=== PATIENT | male | born 1940 | race Caucasian/White ===

== ENCOUNTER 2018-09-25 09:03 | Inpatient (IN) ==
[2018-09-25] MEDS ORDERED: NITROGLYCERIN SL 0.4 MG TABLET SL ONE ×2 (09:44→09:58)
[2018-09-25 09:56] LABS: Basophils # 0.1 10*3/uL (0.0-0.2); Basophils % 0.6 % (0.0-0.8); Eosinophils # 0.1 10*3/uL (0.0-0.87); Eosinophils % 0.4 % (0.00-10.9); Hematocrit 47.8 VOL% (42.0-52.0); Hemoglobin 15.4 GM/DL (14.0-18.0); Immature Granulocytes % 2.1 %; Immature Granulocytes Absolute 0.29 #; Lymphocytes # 0.8 10*3/uL (1.4-4.0); Lymphocytes % 5.4 % (21.2-54.2); Mean Corpuscular HGB Conc 32.2 GM/DL (32-36); Mean Corpuscular Volume 95.6 FL (87-102); Mean Platelet Volume 9.4 FL (9.6-12.0); Monocytes % 7.4 % (1.7-12.7); Neutrophils % 84.1 % (38.7-73.9); Platelet Count 591 T/CUMM (130-400); Red Cell Distribution Width 14.2 % (9.3-17.3)
[2018-09-25 10:03] LABS: PT Patient Result 11.3 SECS
[2018-09-25] MEDS ORDERED: ONDANSETRON 4 MG/2 ML VIAL ONE (10:10)
[2018-09-25] MEDS ORDERED: MORPHINE 4 MG/1 ML VIAL ONE (10:10)
[2018-09-25 10:13] LABS: Bilirubin,Total 0.8 MG/DL (0.2-1.0); Calcium 9.4 MG/DL (8.5-10.1); Osmolality,Calculated 282.4 MOS/KG (273-304); Total Protein 7.7 G/DL (6.4-8.3)
[2018-09-25] MEDS ORDERED: NITROGLYCERIN SL 0.4 MG TABLET SL STA ×2 (10:34→10:35)
[2018-09-25] MEDS ORDERED: MORPHINE 4 MG/1 ML VIAL IV STA (10:35)
[2018-09-25] MEDS ORDERED: ONDANSETRON 4 MG/2 ML VIAL IV STA (10:36)
[2018-09-25] MEDS ORDERED: LEVOFLOXACIN INJ 500 MG in PREMIX 1 EACH IV STA (11:03)
[2018-09-25] MEDS ORDERED: FUROSEMIDE 100 MG/10 ML VIAL IV STA (11:06)
[2018-09-25 11:34] LABS: ABG Base Excess 1.5 MMOL/L (-2.5-2.5); ABG Oxygen Saturation 95.7 % (95-100); ABG PCO2 36.1 MM HG (35-48); ABG PH 7.459 (7.35-7.45); ABG PO2 82.6 MM HG (80-95); ABG TCO2 26.1 MMOL/L (23-27)
[2018-09-25] MEDS ORDERED: ONDANSETRON 4 MG/2 ML VIAL IV PRN (11:44)
[2018-09-25] MEDS ORDERED: ALBUTEROL 2.5 MG/3 ML NEB RESP TX PRN (11:44)
[2018-09-25] MEDS ORDERED: ACETAMINOPHEN 325 MG TABLET PO PRN (11:44)
[2018-09-25] MEDS: ALBUTEROL/IPRATROPIUM 3 ML NEB RESP TX SCH ×2 (13:11→20:07)
[2018-09-25] MEDS: ENOXAPARIN 40 MG/0.4 ML SYRINGE SUBCUT SCH (15:14)
[2018-09-25] MEDS: CILOSTAZOL 100 MG TABLET PO SCH (20:47)
[2018-09-25] MEDS: hydrALAZINE 25 MG TABLET PO SCH (20:47)
[2018-09-25 22:32] LABS: Apearance,Urine Slightly Hazy (Clear); Bacteria,Urine Occasional /HPF (Few); Bilirubin,Urine Negative (Negative); Blood, Urine Large mg/dL (Negative); Glucose,Urine (UA) Negative (Negative); Ketones,Urine 20 mg/dL (Negative); Mucus,Urine Occasional /LPF (Occasional); Nitrite,Urine Negative (Negative); Protein,Urine 100 MG/DL; RBC,Urine 423 /HPF (0-4); Squamous Epithelial Cell,Urine Occasional /HPF (0-10); Urine Color Yellow (Yellow); Urine Specific Gravity 1.017 (1.001-1.035); WBC,Urine 5 /HPF (0-6)
[2018-09-26] MEDS ORDERED: MELATONIN 3 MG TABLET PO PRN (00:06)
[2018-09-26] MEDS: ALBUTEROL/IPRATROPIUM 3 ML NEB RESP TX SCH ×4 (00:36→19:45)
[2018-09-26 05:08] LABS: Basophils % 0.2 % (0.0-0.8); Eosinophils % 0.2 % (0.00-10.9); Hematocrit 43.3 VOL% (42.0-52.0); Hemoglobin 14.1 GM/DL (14.0-18.0); Immature Granulocytes % 1.6 %; Immature Granulocytes Absolute 0.28 #; Lymphocytes # 0.7 10*3/uL (1.4-4.0); Lymphocytes % 3.8 % (21.2-54.2); Mean Corpuscular HGB Conc 32.6 GM/DL (32-36); Mean Corpuscular Volume 96.7 FL (87-102); Mean Platelet Volume 9.7 FL (9.6-12.0); Neutrophils % 86.2 % (38.7-73.9); Platelet Count 549 T/CUMM (130-400); Red Blood Count 4.48 MC/CUMM (3.8-5.5); Red Cell Distribution Width 14.3 % (9.3-17.3); White Blood Count 17.2 T/CUMM (4-12)
[2018-09-26 05:27] LABS: Allen Test Positive; Pt O2 Delivery Device Other
[2018-09-26 05:29] LABS: ABG Base Excess -0.7 MMOL/L (-2.5-2.5); ABG HCO3 23.7 MMOL/L (20-26); ABG Oxygen Saturation 92.1 % (95-100); ABG PH 7.363 (7.35-7.45); ABG PO2 70.8 MM HG (80-95); ABG TCO2 21.4 MMOL/L (23-27)
[2018-09-26 05:37] LABS: Anisocytosis 1+; Band Neutrophils 1 % (0-10); Lymphocytes 7 % (20-55); Nucleated Red Blood Cells 2 (0-5); Platelet Estimate Increased; Segmented Neutrophils 91 % (50-85); Total Cells Counted 100
[2018-09-26 05:43] LABS: Albumin 2.4 G/DL (3.4-5.0); Bilirubin,Total 1.4 MG/DL (0.2-1.0); Calcium 9.2 MG/DL (8.5-10.1); Osmolality,Calculated 284.3 MOS/KG (273-304); Total Protein 7.2 G/DL (6.4-8.3)
[2018-09-26] MEDS ORDERED: SUCCINYLCHOLINE 200 MG/10 ML VIAL ONE (06:07)
[2018-09-26] MEDS ORDERED: ETOMIDATE 20 MG/10 ML VIAL IV ONE ×2 (06:07→06:14)
[2018-09-26] MEDS ORDERED: VECURONIUM 10 MG VIAL IV ONE ×2 (06:14→06:46)
[2018-09-26] MEDS ORDERED: PROPOFOL 1,000 MG/100 ML BOTTLE IV ONE (06:25)
[2018-09-26] MEDS ORDERED: FUROSEMIDE 40 MG/4 ML VIAL ONE (06:28)
[2018-09-26] MEDS: PROPOFOL 1,000 MG/100 ML BOTTLE IV SCH ×5 (06:28→21:52)
[2018-09-26] MEDS ORDERED: FUROSEMIDE 40 MG/4 ML VIAL IV ONE ×2 (06:29→06:58)
[2018-09-26] MEDS ORDERED: MIDAZOLAM 2 MG/2 ML VIAL ONE (06:36)
[2018-09-26] MEDS ORDERED: MIDAZOLAM 2 MG/2 ML VIAL IV ONE (06:38)
[2018-09-26] MEDS ORDERED: VECURONIUM 10 MG VIAL IV PRN (06:52)
[2018-09-26 07:09] LABS: ABG Base Excess -4.2 MMOL/L (-2.5-2.5); ABG HCO3 20.9 MMOL/L (20-26); ABG PO2 85.1 MM HG (80-95); ABG TCO2 24.2 MMOL/L (23-27); Allen Test Positive; Pt O2 Delivery Device Ventilator
[2018-09-26 07:24] LABS: ABG PCO2 73.3 MM HG (35-48); ABG PH 7.179 (7.35-7.45)
[2018-09-26] MEDS: PIPERACILLIN/TAZOBACTAM 3,375 MG in SODIUM CHLORIDE 0.9% 100 ML IV SCH ×3 (08:00→23:17)
[2018-09-26] MEDS ORDERED: ASCORBIC ACID 500 MG TABLET PO SCH (09:00)
[2018-09-26] MEDS ORDERED: PANTOPRAZOLE 40 MG TABLET PO SCH (09:00)
[2018-09-26] MEDS: POTASSIUM GLUCONATE 500 MG TABLET PO SCH (09:18)
[2018-09-26] MEDS: ALLOPURINOL 300 MG TABLET PO SCH (09:18)
[2018-09-26] MEDS: DULoxetine 30 MG CAPSULE PO SCH (09:18)
[2018-09-26] MEDS: CILOSTAZOL 100 MG TABLET PO SCH ×2 (09:18→21:39)
[2018-09-26] MEDS: ASPIRIN CHEW 81 MG TABLET PO SCH (09:18)
[2018-09-26] MEDS: LEVOFLOXACIN INJ 750 MG in PREMIX 1 EACH IV SCH (09:19)
[2018-09-26] MEDS: LEVOTHYROXINE 75 MCG TABLET PO SCH (09:19)
[2018-09-26] MEDS: hydrALAZINE 25 MG TABLET PO SCH ×2 (09:19→21:18)
[2018-09-26] MEDS: LANSOPRAZOLE ODT 30 MG TABLET PER TUBE SCH (09:28)
[2018-09-26] MEDS: ASCORBIC ACID 500 MG TABLET PO SCH ×2 (12:00→21:39)
[2018-09-26] MEDS: ENOXAPARIN 40 MG/0.4 ML SYRINGE SUBCUT SCH (12:07)
[2018-09-26] MEDS: LACTATED RINGERS 1,000 ML IV SCH ×2 (13:30→23:12)
[2018-09-26] MEDS ORDERED: GLUCAGON 1 MG VIAL IM PRN (13:55)
[2018-09-26] MEDS ORDERED: DEXTROSE 50% 25 GM/50 ML VIAL IV PRN (13:55)
[2018-09-26] MEDS: INSULIN LISPRO 100 UNIT/ML SUBCUT SCH ×2 (16:19→21:39)
[2018-09-26 16:53] LABS: Calcium 8.8 MG/DL (8.5-10.1); Osmolality,Calculated 282.5 MOS/KG (273-304)
[2018-09-27] MEDS: ALBUTEROL/IPRATROPIUM 3 ML NEB RESP TX SCH ×4 (01:50→19:05)
[2018-09-27] MEDS: PROPOFOL 1,000 MG/100 ML BOTTLE IV SCH ×5 (03:35→20:28)
[2018-09-27 04:23] LABS: ABG Base Excess 1.8 MMOL/L (-2.5-2.5); ABG HCO3 28.3 MMOL/L (20-26); ABG Oxygen Saturation 98.7 % (95-100); ABG PCO2 52.4 MM HG (35-48); ABG PO2 157.1 MM HG (80-95); ABG TCO2 29.9 MMOL/L (23-27); Allen Test Positive; Pt O2 Delivery Device Ventilator
[2018-09-27] MEDS: PIPERACILLIN/TAZOBACTAM 3,375 MG in SODIUM CHLORIDE 0.9% 100 ML IV SCH ×3 (06:01→23:38)
[2018-09-27 07:09] LABS: Basophils % 0.3 % (0.0-0.8); Eosinophils # 0.1 10*3/uL (0.0-0.87); Eosinophils % 0.4 % (0.00-10.9); Hematocrit 41.1 VOL% (42.0-52.0); Hemoglobin 12.7 GM/DL (14.0-18.0); Immature Granulocytes % 1.5 %; Immature Granulocytes Absolute 0.24 #; Lymphocytes # 0.4 10*3/uL (1.4-4.0); Lymphocytes % 2.6 % (21.2-54.2); Mean Corpuscular HGB Conc 30.9 GM/DL (32-36); Mean Corpuscular Volume 99.8 FL (87-102); Mean Platelet Volume 9.5 FL (9.6-12.0); Monocytes % 7.8 % (1.7-12.7); Neutrophils % 87.4 % (38.7-73.9); Platelet Count 417 T/CUMM (130-400); Red Blood Count 4.12 MC/CUMM (3.8-5.5); Red Cell Distribution Width 14.5 % (9.3-17.3); White Blood Count 15.7 T/CUMM (4-12)
[2018-09-27 07:22] LABS: Lymphocytes 2 % (20-55); Segmented Neutrophils 92 % (50-85); Total Cells Counted 100
[2018-09-27 07:23] LABS: Hypochromasia Slight; Platelet Estimate Adequate
[2018-09-27] MEDS: INSULIN LISPRO 100 UNIT/ML SUBCUT SCH ×4 (07:54→21:48)
[2018-09-27] MEDS: LEVOFLOXACIN INJ 750 MG in PREMIX 1 EACH IV SCH (08:07)
[2018-09-27] MEDS: LANSOPRAZOLE ODT 30 MG TABLET PER TUBE SCH (08:17)
[2018-09-27] MEDS: ASPIRIN CHEW 81 MG TABLET PO SCH (08:18)
[2018-09-27] MEDS: DULoxetine 30 MG CAPSULE PO SCH (08:18)
[2018-09-27] MEDS: ALLOPURINOL 300 MG TABLET PO SCH (08:18)
[2018-09-27] MEDS: CILOSTAZOL 100 MG TABLET PO SCH ×2 (08:18→21:48)
[2018-09-27] MEDS: LEVOTHYROXINE 75 MCG TABLET PO SCH (08:18)
[2018-09-27] MEDS: ASCORBIC ACID 500 MG TABLET PO SCH ×2 (08:18→21:48)
[2018-09-27 08:26] LABS: Calcium 8.9 MG/DL (8.5-10.1); Osmolality,Calculated 283.5 MOS/KG (273-304)
[2018-09-27] MEDS: hydrALAZINE 25 MG TABLET PO SCH ×2 (09:12→21:53)
[2018-09-27] MEDS: LACTATED RINGERS 1,000 ML IV SCH ×3 (09:12→19:32)
[2018-09-27] MEDS: POTASSIUM GLUCONATE 500 MG TABLET PO SCH (09:12)
[2018-09-27] MEDS: CARVEDILOL 3.125 MG TABLET PO SCH ×2 (09:59→21:48)
[2018-09-27] MEDS: ENOXAPARIN 40 MG/0.4 ML SYRINGE SUBCUT SCH (12:12)
[2018-09-28] MEDS: ALBUTEROL/IPRATROPIUM 3 ML NEB RESP TX SCH ×4 (00:50→19:20)
[2018-09-28] MEDS: PROPOFOL 1,000 MG/100 ML BOTTLE IV SCH ×5 (01:02→18:39)
[2018-09-28 04:09] LABS: Basophils % 0.3 % (0.0-0.8); Eosinophils # 0.1 10*3/uL (0.0-0.87); Eosinophils % 1.3 % (0.00-10.9); Hemoglobin 10.1 GM/DL (14.0-18.0); Immature Granulocytes % 1.8 %; Immature Granulocytes Absolute 0.18 #; Lymphocytes # 0.6 10*3/uL (1.4-4.0); Lymphocytes % 5.6 % (21.2-54.2); Mean Corpuscular HGB Conc 31.6 GM/DL (32-36); Mean Corpuscular Volume 98.5 FL (87-102); Mean Platelet Volume 10.5 FL (9.6-12.0); Monocytes % 6.4 % (1.7-12.7); Neutrophils % 84.6 % (38.7-73.9); Platelet Count 309 T/CUMM (130-400); Red Blood Count 3.25 MC/CUMM (3.8-5.5); Red Cell Distribution Width 14.2 % (9.3-17.3); White Blood Count 10.1 T/CUMM (4-12)
[2018-09-28 04:43] LABS: ABG Base Excess 5.1 MMOL/L (-2.5-2.5); ABG HCO3 30.3 MMOL/L (20-26); ABG Oxygen Saturation 97.9 % (95-100); ABG PCO2 47.5 MM HG (35-48); ABG PH 7.423 (7.35-7.45); ABG PO2 109.2 MM HG (80-95); ABG TCO2 31.8 MMOL/L (23-27); Allen Test Positive; Pt O2 Delivery Device Ventilator
[2018-09-28 05:25] LABS: Calcium 8.8 MG/DL (8.5-10.1); Osmolality,Calculated 290.4 MOS/KG (273-304)
[2018-09-28] MEDS: LACTATED RINGERS 1,000 ML IV SCH ×2 (05:31→15:22)
[2018-09-28 05:32] LABS: Prealbumin 4.3 MG/DL (20-40)
[2018-09-28] MEDS: PIPERACILLIN/TAZOBACTAM 3,375 MG in SODIUM CHLORIDE 0.9% 100 ML IV SCH ×3 (06:03→22:22)
[2018-09-28] MEDS: INSULIN LISPRO 100 UNIT/ML SUBCUT SCH ×4 (08:45→23:49)
[2018-09-28] MEDS: DULoxetine 30 MG CAPSULE PO SCH (08:45)
[2018-09-28] MEDS: hydrALAZINE 25 MG TABLET PO SCH (08:46)
[2018-09-28] MEDS: ALLOPURINOL 300 MG TABLET PO SCH (08:46)
[2018-09-28] MEDS: CARVEDILOL 3.125 MG TABLET PO SCH (08:46)
[2018-09-28] MEDS: CILOSTAZOL 100 MG TABLET PO SCH ×2 (08:46→21:20)
[2018-09-28] MEDS: LANSOPRAZOLE ODT 30 MG TABLET PER TUBE SCH (08:47)
[2018-09-28] MEDS: ASCORBIC ACID 500 MG TABLET PO SCH ×2 (08:47→21:20)
[2018-09-28] MEDS: ASPIRIN CHEW 81 MG TABLET PO SCH (08:47)
[2018-09-28] MEDS: LEVOTHYROXINE 75 MCG TABLET PO SCH (08:47)
[2018-09-28] MEDS: methylPREDNISolone SOD SUC 40 MG/1 ML VIAL IV SCH ×3 (08:48→23:50)
[2018-09-28] MEDS: LEVOFLOXACIN INJ 750 MG in PREMIX 1 EACH IV SCH (08:49)
[2018-09-28] MEDS ORDERED: POTASSIUM CHLORIDE 20 MEQ/15 ML UDCUP PER TUBE ONE (09:16)
[2018-09-28] MEDS: ENOXAPARIN 40 MG/0.4 ML SYRINGE SUBCUT SCH (12:14)
[2018-09-28] MEDS: CARVEDILOL 6.25 MG TABLET PO SCH ×2 (12:20→16:39)
[2018-09-29] MEDS: PROPOFOL 1,000 MG/100 ML BOTTLE IV SCH ×6 (00:04→23:37)
[2018-09-29] MEDS: ALBUTEROL/IPRATROPIUM 3 ML NEB RESP TX SCH ×4 (00:54→19:19)
[2018-09-29] MEDS: LACTATED RINGERS 1,000 ML IV SCH ×3 (01:20→20:58)
[2018-09-29 03:37] LABS: ABG Base Excess 3.1 MMOL/L (-2.5-2.5); ABG HCO3 27.2 MMOL/L (20-26); ABG Oxygen Saturation 96.1 % (95-100); ABG PCO2 55.3 MM HG (35-48); ABG PH 7.343 (7.35-7.45); ABG PO2 88.3 MM HG (80-95); ABG TCO2 27.1 MMOL/L (23-27); Allen Test Positive; Pt O2 Delivery Device Ventilator
[2018-09-29 04:13] LABS: Basophils % 0.1 % (0.0-0.8); Hematocrit 37.1 VOL% (42.0-52.0); Hemoglobin 11.5 GM/DL (14.0-18.0); Immature Granulocytes % 2.5 %; Immature Granulocytes Absolute 0.21 #; Lymphocytes # 0.4 10*3/uL (1.4-4.0); Lymphocytes % 4.4 % (21.2-54.2); Mean Corpuscular Volume 98.9 FL (87-102); Monocytes % 4.2 % (1.7-12.7); Neutrophils % 88.8 % (38.7-73.9); Platelet Count 352 T/CUMM (130-400); Red Blood Count 3.75 MC/CUMM (3.8-5.5); Red Cell Distribution Width 14.2 % (9.3-17.3); White Blood Count 8.5 T/CUMM (4-12)
[2018-09-29 04:39] LABS: Calcium 9.7 MG/DL (8.5-10.1); Osmolality,Calculated 297.3 MOS/KG (273-304)
[2018-09-29 05:10] LABS: Hypochromasia Slight; Platelet Estimate Normal; Polychromasia Few
[2018-09-29] MEDS: INSULIN LISPRO 100 UNIT/ML SUBCUT SCH ×3 (05:46→18:55)
[2018-09-29] MEDS: PIPERACILLIN/TAZOBACTAM 3,375 MG in SODIUM CHLORIDE 0.9% 100 ML IV SCH ×3 (06:25→22:25)
[2018-09-29] MEDS: ALLOPURINOL 300 MG TABLET PO SCH (09:09)
[2018-09-29] MEDS: DULoxetine 30 MG CAPSULE PO SCH (09:09)
[2018-09-29] MEDS: ASPIRIN CHEW 81 MG TABLET PO SCH (09:09)
[2018-09-29] MEDS: CILOSTAZOL 100 MG TABLET PO SCH ×2 (09:09→20:49)
[2018-09-29] MEDS: LEVOTHYROXINE 75 MCG TABLET PO SCH (09:10)
[2018-09-29] MEDS: ASCORBIC ACID 500 MG TABLET PO SCH ×2 (09:10→20:49)
[2018-09-29] MEDS: LANSOPRAZOLE ODT 30 MG TABLET PER TUBE SCH (09:11)
[2018-09-29] MEDS: methylPREDNISolone SOD SUC 40 MG/1 ML VIAL IV SCH ×3 (09:12→23:36)
[2018-09-29] MEDS: LEVOFLOXACIN INJ 750 MG in PREMIX 1 EACH IV SCH (09:17)
[2018-09-29] MEDS: CARVEDILOL 12.5 MG TABLET PO SCH ×2 (09:57→16:50)
[2018-09-29] MEDS: CARVEDILOL 6.25 MG TABLET PO SCH (10:59)
[2018-09-29] MEDS: ENOXAPARIN 40 MG/0.4 ML SYRINGE SUBCUT SCH (12:37)
[2018-09-30] MEDS: INSULIN LISPRO 100 UNIT/ML SUBCUT SCH ×5 (00:20→23:11)
[2018-09-30] MEDS: ALBUTEROL/IPRATROPIUM 3 ML NEB RESP TX SCH ×4 (00:52→19:08)
[2018-09-30 02:54] LABS: ABG Base Excess 3.8 MMOL/L (-2.5-2.5); ABG HCO3 27.7 MMOL/L (20-26); ABG PCO2 57.2 MM HG (35-48); ABG PH 7.341 (7.35-7.45); ABG PO2 72.8 MM HG (80-95); Allen Test Positive; Pt O2 Delivery Device Ventilator
[2018-09-30] MEDS: PROPOFOL 1,000 MG/100 ML BOTTLE IV SCH ×5 (04:23→19:16)
[2018-09-30 05:24] LABS: Basophils % 0.3 % (0.0-0.8); Hematocrit 36.2 VOL% (42.0-52.0); Immature Granulocytes Absolute 0.54 #; Lymphocytes # 0.4 10*3/uL (1.4-4.0); Lymphocytes % 3.7 % (21.2-54.2); Mean Corpuscular HGB Conc 30.4 GM/DL (32-36); Mean Corpuscular Volume 100.6 FL (87-102); Mean Platelet Volume 9.9 FL (9.6-12.0); Monocytes % 5.8 % (1.7-12.7); Neutrophils % 85.2 % (38.7-73.9); Platelet Count 355 T/CUMM (130-400); Red Cell Distribution Width 13.9 % (9.3-17.3); White Blood Count 10.9 T/CUMM (4-12)
[2018-09-30 05:40] LABS: Calcium 9.4 MG/DL (8.5-10.1); Osmolality,Calculated 297.1 MOS/KG (273-304)
[2018-09-30 05:47] LABS: Anisocytosis 1+; Eosinophils 1 % (0-10); Lymphocytes 4 % (20-55); Macrocytosis 1+; Metamyelocytes 1 %; Platelet Estimate Normal; Polychromasia Few; Segmented Neutrophils 88 % (50-85); Total Cells Counted 100
[2018-09-30] MEDS: PIPERACILLIN/TAZOBACTAM 3,375 MG in SODIUM CHLORIDE 0.9% 100 ML IV SCH ×3 (06:33→23:19)
[2018-09-30] MEDS: LACTATED RINGERS 1,000 ML IV SCH ×2 (06:49→18:44)
[2018-09-30] MEDS ORDERED: FUROSEMIDE 40 MG/4 ML VIAL IV ONE (07:47)
[2018-09-30] MEDS: CARVEDILOL 12.5 MG TABLET PO SCH ×2 (09:08→18:07)
[2018-09-30] MEDS: ASCORBIC ACID 500 MG TABLET PO SCH ×2 (09:08→21:32)
[2018-09-30] MEDS: LANSOPRAZOLE ODT 30 MG TABLET PER TUBE SCH (09:08)
[2018-09-30] MEDS: DULoxetine 30 MG CAPSULE PO SCH (09:09)
[2018-09-30] MEDS: ALLOPURINOL 300 MG TABLET PO SCH (09:09)
[2018-09-30] MEDS: CILOSTAZOL 100 MG TABLET PO SCH ×2 (09:09→21:32)
[2018-09-30] MEDS: ASPIRIN CHEW 81 MG TABLET PO SCH (09:09)
[2018-09-30] MEDS: methylPREDNISolone SOD SUC 40 MG/1 ML VIAL IV SCH ×2 (09:21→17:57)
[2018-09-30] MEDS: LEVOFLOXACIN INJ 750 MG in PREMIX 1 EACH IV SCH (09:27)
[2018-09-30] MEDS: LEVOTHYROXINE 75 MCG TABLET PO SCH (09:53)
[2018-09-30] MEDS: ENOXAPARIN 40 MG/0.4 ML SYRINGE SUBCUT SCH (12:24)
[2018-10-01] MEDS: PROPOFOL 1,000 MG/100 ML BOTTLE IV SCH ×7 (00:03→23:57)
[2018-10-01] MEDS: methylPREDNISolone SOD SUC 40 MG/1 ML VIAL IV SCH ×4 (00:10→20:56)
[2018-10-01] MEDS: ALBUTEROL/IPRATROPIUM 3 ML NEB RESP TX SCH ×4 (00:51→19:34)
[2018-10-01 03:12] LABS: ABG Base Excess 6.2 MMOL/L (-2.5-2.5); ABG HCO3 30.1 MMOL/L (20-26); ABG Oxygen Saturation 96.8 % (95-100); ABG PCO2 52.3 MM HG (35-48); ABG PH 7.401 (7.35-7.45); ABG PO2 91.2 MM HG (80-95); ABG TCO2 28.8 MMOL/L (23-27); Allen Test Positive; Pt O2 Delivery Device Ventilator
[2018-10-01] MEDS: INSULIN LISPRO 100 UNIT/ML SUBCUT SCH ×3 (05:20→17:59)
[2018-10-01] MEDS: PIPERACILLIN/TAZOBACTAM 3,375 MG in SODIUM CHLORIDE 0.9% 100 ML IV SCH ×3 (06:23→22:51)
[2018-10-01] MEDS ORDERED: FUROSEMIDE 40 MG/4 ML VIAL IV ONE (07:23)
[2018-10-01] MEDS: DULoxetine 30 MG CAPSULE PO SCH (08:58)
[2018-10-01] MEDS: ALLOPURINOL 300 MG TABLET PO SCH (08:58)
[2018-10-01] MEDS: ASCORBIC ACID 500 MG TABLET PO SCH ×2 (08:58→20:56)
[2018-10-01] MEDS: CILOSTAZOL 100 MG TABLET PO SCH ×2 (08:58→20:56)
[2018-10-01] MEDS: CARVEDILOL 12.5 MG TABLET PO SCH ×2 (08:58→17:26)
[2018-10-01] MEDS: ASPIRIN CHEW 81 MG TABLET PO SCH (08:59)
[2018-10-01] MEDS: LANSOPRAZOLE ODT 30 MG TABLET PER TUBE SCH (08:59)
[2018-10-01] MEDS: LEVOTHYROXINE 75 MCG TABLET PO SCH (08:59)
[2018-10-01] MEDS: LEVOFLOXACIN INJ 750 MG in PREMIX 1 EACH IV SCH (09:32)
[2018-10-01] MEDS: ENOXAPARIN 40 MG/0.4 ML SYRINGE SUBCUT SCH (12:38)
[2018-10-01] MEDS: LACTATED RINGERS 1,000 ML IV SCH ×2 (16:09→18:30)
[2018-10-02] MEDS: INSULIN LISPRO 100 UNIT/ML SUBCUT SCH ×5 (00:10→23:32)
[2018-10-02] MEDS: ALBUTEROL/IPRATROPIUM 3 ML NEB RESP TX SCH ×4 (01:34→20:22)
[2018-10-02 04:18] LABS: ABG HCO3 33.7 MMOL/L (20-26); ABG Oxygen Saturation 94.9 % (95-100); ABG PCO2 53.4 MM HG (35-48); ABG PH 7.441 (7.35-7.45); ABG PO2 76.3 MM HG (80-95); ABG TCO2 31.6 MMOL/L (23-27); Allen Test Positive; Pt O2 Delivery Device Ventilator
[2018-10-02] MEDS: PROPOFOL 1,000 MG/100 ML BOTTLE IV SCH ×6 (04:43→23:21)
[2018-10-02 04:58] LABS: Calcium 9.2 MG/DL (8.5-10.1); Osmolality,Calculated 305.3 MOS/KG (273-304)
[2018-10-02] MEDS: PIPERACILLIN/TAZOBACTAM 3,375 MG in SODIUM CHLORIDE 0.9% 100 ML IV SCH ×3 (06:21→23:23)
[2018-10-02] MEDS: ASCORBIC ACID 500 MG TABLET PO SCH ×2 (09:24→21:13)
[2018-10-02] MEDS: ASPIRIN CHEW 81 MG TABLET PO SCH (09:24)
[2018-10-02] MEDS: LANSOPRAZOLE ODT 30 MG TABLET PER TUBE SCH (09:24)
[2018-10-02] MEDS: ALLOPURINOL 300 MG TABLET PO SCH (09:24)
[2018-10-02] MEDS: DULoxetine 30 MG CAPSULE PO SCH (09:24)
[2018-10-02] MEDS: LEVOTHYROXINE 75 MCG TABLET PO SCH (09:24)
[2018-10-02] MEDS: CARVEDILOL 12.5 MG TABLET PO SCH ×2 (09:24→17:06)
[2018-10-02] MEDS: CILOSTAZOL 100 MG TABLET PO SCH ×2 (09:24→21:13)
[2018-10-02] MEDS: methylPREDNISolone SOD SUC 40 MG/1 ML VIAL IV SCH ×2 (09:45→21:08)
[2018-10-02] MEDS: LEVOFLOXACIN INJ 750 MG in PREMIX 1 EACH IV SCH (09:51)
[2018-10-02] MEDS: ENOXAPARIN 40 MG/0.4 ML SYRINGE SUBCUT SCH (12:35)
[2018-10-02] MEDS: LACTATED RINGERS 1,000 ML IV SCH (18:35)
[2018-10-02] MEDS: guaiFENesin/DM ER 600-30 MG TABLET PO PRN (21:13)
[2018-10-03] MEDS: ALBUTEROL/IPRATROPIUM 3 ML NEB RESP TX SCH ×4 (01:45→19:55)
[2018-10-03 04:27] LABS: ABG Base Excess 10.5 MMOL/L (-2.5-2.5); ABG HCO3 34.2 MMOL/L (20-26); ABG Oxygen Saturation 95.2 % (95-100); ABG PCO2 51.8 MM HG (35-48); ABG PH 7.455 (7.35-7.45); ABG PO2 81.7 MM HG (80-95); ABG TCO2 31.8 MMOL/L (23-27); Pt O2 Delivery Device Ventilator
[2018-10-03] MEDS: PROPOFOL 1,000 MG/100 ML BOTTLE IV SCH ×4 (04:58→22:05)
[2018-10-03 05:10] LABS: Basophils % 0.1 % (0.0-0.8); Hemoglobin 13.6 GM/DL (14.0-18.0); Immature Granulocytes % 11.4 %; Immature Granulocytes Absolute 1.93 #; Lymphocytes # 0.7 10*3/uL (1.4-4.0); Lymphocytes % 4.4 % (21.2-54.2); Mean Corpuscular HGB Conc 31.6 GM/DL (32-36); Mean Corpuscular Volume 97.1 FL (87-102); Mean Platelet Volume 10.1 FL (9.6-12.0); Monocytes % 5.5 % (1.7-12.7); NRBC # 0.02 10*3/uL; Neutrophils % 78.6 % (38.7-73.9); Platelet Count 334 T/CUMM (130-400); Red Blood Count 4.43 MC/CUMM (3.8-5.5); Red Cell Distribution Width 14.5 % (9.3-17.3); White Blood Count 16.9 T/CUMM (4-12)
[2018-10-03 05:40] LABS: Lymphocytes 7 % (20-55); Platelet Estimate Adequate; Segmented Neutrophils 86 % (50-85); Total Cells Counted 100
[2018-10-03 05:41] LABS: Hypochromasia 1+; Macrocytosis Slight
[2018-10-03] MEDS: INSULIN LISPRO 100 UNIT/ML SUBCUT SCH ×3 (05:43→18:28)
[2018-10-03] MEDS: PIPERACILLIN/TAZOBACTAM 3,375 MG in SODIUM CHLORIDE 0.9% 100 ML IV SCH ×3 (06:18→23:54)
[2018-10-03 06:19] LABS: Albumin 1.9 G/DL (3.4-5.0); Calcium 9.4 MG/DL (8.5-10.1); Osmolality,Calculated 310.8 MOS/KG (273-304)
[2018-10-03] MEDS: LEVOFLOXACIN 750 MG TABLET PER TUBE SCH (09:12)
[2018-10-03] MEDS: DULoxetine 30 MG CAPSULE PO SCH (09:13)
[2018-10-03] MEDS: CILOSTAZOL 100 MG TABLET PO SCH ×2 (09:13→21:54)
[2018-10-03] MEDS: CARVEDILOL 12.5 MG TABLET PO SCH ×2 (09:13→16:42)
[2018-10-03] MEDS: LANSOPRAZOLE ODT 30 MG TABLET PER TUBE SCH (09:13)
[2018-10-03] MEDS: ALLOPURINOL 300 MG TABLET PO SCH (09:13)
[2018-10-03] MEDS: methylPREDNISolone SOD SUC 40 MG/1 ML VIAL IV SCH ×2 (09:14→21:54)
[2018-10-03] MEDS: ASCORBIC ACID 500 MG TABLET PO SCH ×2 (09:14→21:55)
[2018-10-03] MEDS: ASPIRIN CHEW 81 MG TABLET PO SCH (09:14)
[2018-10-03] MEDS: LEVOTHYROXINE 75 MCG TABLET PO SCH (09:14)
[2018-10-03] MEDS: FUROSEMIDE 40 MG/5 ML UDCUP PO SCH (09:28)
[2018-10-03] MEDS: ENOXAPARIN 40 MG/0.4 ML SYRINGE SUBCUT SCH (12:26)
[2018-10-03] MEDS: LACTATED RINGERS 1,000 ML IV SCH (18:29)
[2018-10-03] MEDS: guaiFENesin/DM ER 600-30 MG TABLET PO PRN (21:54)
[2018-10-04] MEDS: INSULIN LISPRO 100 UNIT/ML SUBCUT SCH ×5 (00:04→23:53)
[2018-10-04] MEDS: ALBUTEROL/IPRATROPIUM 3 ML NEB RESP TX SCH ×4 (01:31→19:59)
[2018-10-04 03:27] LABS: ABG Base Excess 13.7 MMOL/L (-2.5-2.5); ABG HCO3 37.5 MMOL/L (20-26); ABG PCO2 51.3 MM HG (35-48); ABG PH 7.493 (7.35-7.45); ABG PO2 88.8 MM HG (80-95); ABG TCO2 34.5 MMOL/L (23-27)
[2018-10-04] MEDS: PROPOFOL 1,000 MG/100 ML BOTTLE IV SCH ×4 (03:59→23:46)
[2018-10-04 05:58] LABS: Basophils % 0.1 % (0.0-0.8); Hematocrit 40.6 VOL% (42.0-52.0); Hemoglobin 12.5 GM/DL (14.0-18.0); Immature Granulocytes % 10.7 %; Immature Granulocytes Absolute 1.65 #; Lymphocytes # 0.5 10*3/uL (1.4-4.0); Lymphocytes % 3.5 % (21.2-54.2); Mean Corpuscular HGB Conc 30.8 GM/DL (32-36); Mean Corpuscular Volume 97.8 FL (87-102); Mean Platelet Volume 10.2 FL (9.6-12.0); Monocytes % 4.8 % (1.7-12.7); Neutrophils % 80.9 % (38.7-73.9); Platelet Count 297 T/CUMM (130-400); Red Blood Count 4.15 MC/CUMM (3.8-5.5); Red Cell Distribution Width 14.5 % (9.3-17.3); White Blood Count 15.4 T/CUMM (4-12)
[2018-10-04] MEDS: PIPERACILLIN/TAZOBACTAM 3,375 MG in SODIUM CHLORIDE 0.9% 100 ML IV SCH ×3 (06:00→23:39)
[2018-10-04 06:32] LABS: Calcium 9.5 MG/DL (8.5-10.1); Osmolality,Calculated 308.1 MOS/KG (273-304)
[2018-10-04 06:38] LABS: Anisocytosis 1+; Eosinophils 1 % (0-10); Lymphocytes 3 % (20-55); Metamyelocytes 1 %; Nucleated Red Blood Cells 1 (0-5); Platelet Estimate Adequate; Segmented Neutrophils 93 % (50-85); Total Cells Counted 100
[2018-10-04] MEDS: CARVEDILOL 12.5 MG TABLET PO SCH ×2 (08:14→17:02)
[2018-10-04] MEDS ORDERED: INSULIN GLARGINE 100 UNIT/ML SUBCUT SCH (09:00)
[2018-10-04] MEDS: FUROSEMIDE 40 MG/5 ML UDCUP PO SCH (09:05)
[2018-10-04] MEDS: methylPREDNISolone SOD SUC 40 MG/1 ML VIAL IV SCH ×2 (09:46→21:20)
[2018-10-04] MEDS: LANSOPRAZOLE ODT 30 MG TABLET PER TUBE SCH (09:52)
[2018-10-04] MEDS: LEVOFLOXACIN 750 MG TABLET PER TUBE SCH (09:52)
[2018-10-04] MEDS: ALLOPURINOL 300 MG TABLET PO SCH (09:52)
[2018-10-04] MEDS: ASCORBIC ACID 500 MG TABLET PO SCH ×2 (09:52→20:13)
[2018-10-04] MEDS: LEVOTHYROXINE 75 MCG TABLET PO SCH (09:52)
[2018-10-04] MEDS: CILOSTAZOL 100 MG TABLET PO SCH ×2 (09:53→20:14)
[2018-10-04] MEDS: ASPIRIN CHEW 81 MG TABLET PO SCH (09:53)
[2018-10-04] MEDS: DULoxetine 30 MG CAPSULE PO SCH (09:53)
[2018-10-04] MEDS: ENOXAPARIN 40 MG/0.4 ML SYRINGE SUBCUT SCH (12:12)
[2018-10-04] MEDS: LACTATED RINGERS 1,000 ML IV SCH (18:29)
[2018-10-05] MEDS: ALBUTEROL/IPRATROPIUM 3 ML NEB RESP TX SCH ×4 (01:51→19:20)
[2018-10-05 04:37] LABS: Basophils # 0.2 10*3/uL (0.0-0.2); Basophils % 0.8 % (0.0-0.8); Hematocrit 39.8 VOL% (42.0-52.0); Hemoglobin 12.4 GM/DL (14.0-18.0); Immature Granulocytes % 10.4 %; Immature Granulocytes Absolute 2.03 #; Lymphocytes # 0.6 10*3/uL (1.4-4.0); Lymphocytes % 3.2 % (21.2-54.2); Mean Corpuscular HGB Conc 31.2 GM/DL (32-36); Mean Corpuscular Volume 96.6 FL (87-102); Monocytes % 5.5 % (1.7-12.7); Neutrophils % 80.1 % (38.7-73.9); Platelet Count 334 T/CUMM (130-400); Red Blood Count 4.12 MC/CUMM (3.8-5.5); Red Cell Distribution Width 14.2 % (9.3-17.3); White Blood Count 19.6 T/CUMM (4-12)
[2018-10-05 04:58] LABS: Calcium 9.4 MG/DL (8.5-10.1); Osmolality,Calculated 312.7 MOS/KG (273-304)
[2018-10-05 05:17] LABS: Hypochromasia 1+; Lymphocytes 5 % (20-55); Platelet Estimate Adequate; Segmented Neutrophils 88 % (50-85); Total Cells Counted 100
[2018-10-05] MEDS: PIPERACILLIN/TAZOBACTAM 3,375 MG in SODIUM CHLORIDE 0.9% 100 ML IV SCH ×3 (06:08→22:22)
[2018-10-05] MEDS: INSULIN LISPRO 100 UNIT/ML SUBCUT SCH ×3 (06:11→18:12)
[2018-10-05 06:39] LABS: ABG Base Excess 8.4 MMOL/L (-2.5-2.5); ABG HCO3 32.1 MMOL/L (20-26); ABG Oxygen Saturation 96.9 % (95-100); ABG PCO2 50.9 MM HG (35-48); ABG PH 7.436 (7.35-7.45); ABG PO2 91.1 MM HG (80-95); ABG TCO2 30.1 MMOL/L (23-27); Allen Test Positive; Pt O2 Delivery Device Ventilator
[2018-10-05] MEDS: PROPOFOL 1,000 MG/100 ML BOTTLE IV SCH ×4 (07:02→15:45)
[2018-10-05] MEDS: methylPREDNISolone SOD SUC 40 MG/1 ML VIAL IV SCH ×2 (10:57→22:07)
[2018-10-05] MEDS: INSULIN GLARGINE 100 UNIT/ML SUBCUT SCH (11:02)
[2018-10-05] MEDS: FUROSEMIDE 40 MG/5 ML UDCUP PO SCH (11:03)
[2018-10-05] MEDS: DULoxetine 30 MG CAPSULE PO SCH (11:04)
[2018-10-05] MEDS: CILOSTAZOL 100 MG TABLET PO SCH ×2 (11:04→22:07)
[2018-10-05] MEDS: ASCORBIC ACID 500 MG TABLET PO SCH ×2 (11:04→22:07)
[2018-10-05] MEDS: ALLOPURINOL 300 MG TABLET PO SCH (11:04)
[2018-10-05] MEDS: ASPIRIN CHEW 81 MG TABLET PO SCH (11:05)
[2018-10-05] MEDS: CARVEDILOL 12.5 MG TABLET PO SCH ×2 (11:05→16:05)
[2018-10-05] MEDS: LEVOTHYROXINE 75 MCG TABLET PO SCH (11:05)
[2018-10-05] MEDS: LEVOFLOXACIN 750 MG TABLET PER TUBE SCH (11:05)
[2018-10-05] MEDS: LANSOPRAZOLE ODT 30 MG TABLET PER TUBE SCH (11:05)
[2018-10-05] MEDS: ENOXAPARIN 40 MG/0.4 ML SYRINGE SUBCUT SCH (12:55)
[2018-10-06] MEDS: PROPOFOL 1,000 MG/100 ML BOTTLE IV SCH ×4 (00:05→19:45)
[2018-10-06] MEDS: INSULIN LISPRO 100 UNIT/ML SUBCUT SCH ×4 (00:11→18:24)
[2018-10-06] MEDS: ALBUTEROL/IPRATROPIUM 3 ML NEB RESP TX SCH ×4 (01:20→19:16)
[2018-10-06 04:13] LABS: ABG Base Excess 7.2 MMOL/L (-2.5-2.5); ABG HCO3 30.9 MMOL/L (20-26); ABG Oxygen Saturation 97.3 % (95-100); ABG PCO2 45.5 MM HG (35-48); ABG PH 7.456 (7.35-7.45); ABG PO2 92.1 MM HG (80-95); ABG TCO2 28.2 MMOL/L (23-27); Allen Test Positive; Pt O2 Delivery Device Ventilator
[2018-10-06 04:34] LABS: Basophils # 0.1 10*3/uL (0.0-0.2); Basophils % 0.5 % (0.0-0.8); Eosinophils % 0.1 % (0.00-10.9); Hematocrit 38.4 VOL% (42.0-52.0); Hemoglobin 12.3 GM/DL (14.0-18.0); Immature Granulocytes % 9.3 %; Immature Granulocytes Absolute 1.35 #; Lymphocytes # 0.5 10*3/uL (1.4-4.0); Lymphocytes % 3.4 % (21.2-54.2); Mean Platelet Volume 10.5 FL (9.6-12.0); Monocytes % 3.2 % (1.7-12.7); Neutrophils % 83.5 % (38.7-73.9); Platelet Count 326 T/CUMM (130-400); Red Cell Distribution Width 14.2 % (9.3-17.3); White Blood Count 14.5 T/CUMM (4-12)
[2018-10-06 05:12] LABS: Calcium 9.1 MG/DL (8.5-10.1)
[2018-10-06 05:16] LABS: Prealbumin 32.1 MG/DL (20-40)
[2018-10-06 05:24] LABS: Band Neutrophils 3 % (0-10); Lymphocytes 5 % (20-55); Metamyelocytes 2 %; Myelocytes 4 %; Segmented Neutrophils 83 % (50-85); Total Cells Counted 100
[2018-10-06 05:26] LABS: Anisocytosis Slight; Microcytosis Slight; Polychromasia Slight
[2018-10-06 05:27] LABS: Platelet Estimate Normal
[2018-10-06] MEDS: PIPERACILLIN/TAZOBACTAM 3,375 MG in SODIUM CHLORIDE 0.9% 100 ML IV SCH ×3 (06:35→22:57)
[2018-10-06] MEDS: CARVEDILOL 12.5 MG TABLET PO SCH ×2 (09:06→17:07)
[2018-10-06] MEDS: INSULIN GLARGINE 100 UNIT/ML SUBCUT SCH (09:28)
[2018-10-06] MEDS: ALLOPURINOL 300 MG TABLET PO SCH (09:29)
[2018-10-06] MEDS: LANSOPRAZOLE ODT 30 MG TABLET PER TUBE SCH (09:29)
[2018-10-06] MEDS: DULoxetine 30 MG CAPSULE PO SCH (09:29)
[2018-10-06] MEDS: ASCORBIC ACID 500 MG TABLET PO SCH ×2 (09:29→20:33)
[2018-10-06] MEDS: LEVOFLOXACIN 750 MG TABLET PER TUBE SCH (09:29)
[2018-10-06] MEDS: LEVOTHYROXINE 75 MCG TABLET PO SCH (09:30)
[2018-10-06] MEDS: CILOSTAZOL 100 MG TABLET PO SCH ×2 (09:30→20:33)
[2018-10-06] MEDS: ASPIRIN CHEW 81 MG TABLET PO SCH (09:30)
[2018-10-06] MEDS: methylPREDNISolone SOD SUC 40 MG/1 ML VIAL IV SCH (09:34)
[2018-10-06] MEDS: predniSONE 10 MG TABLET PO SCH (12:59)
[2018-10-06] MEDS: ENOXAPARIN 40 MG/0.4 ML SYRINGE SUBCUT SCH (13:14)
[2018-10-06 18:39] VITALS: BP 106/50
[2018-10-07] MEDS: ALBUTEROL/IPRATROPIUM 3 ML NEB RESP TX SCH ×3 (00:20→13:41)
[2018-10-07] MEDS: PROPOFOL 1,000 MG/100 ML BOTTLE IV SCH ×2 (03:35→10:03)
[2018-10-07 04:49] LABS: ABG Base Excess 4.2 MMOL/L (-2.5-2.5); ABG HCO3 28.2 MMOL/L (20-26); ABG Oxygen Saturation 97.3 % (95-100); ABG PCO2 43.8 MM HG (35-48); ABG PH 7.431 (7.35-7.45); ABG PO2 90.3 MM HG (80-95); ABG TCO2 25.7 MMOL/L (23-27); Allen Test Positive; Pt O2 Delivery Device Ventilator
[2018-10-07 04:56] LABS: Calcium 8.7 MG/DL (8.5-10.1); Osmolality,Calculated 306.1 MOS/KG (273-304)
[2018-10-07 05:32] LABS: Basophils # 0.1 10*3/uL (0.0-0.2); Basophils % 0.4 % (0.0-0.8); Eosinophils # 0.1 10*3/uL (0.0-0.87); Eosinophils % 0.4 % (0.00-10.9); Hematocrit 36.5 VOL% (42.0-52.0); Hemoglobin 11.4 GM/DL (14.0-18.0); Immature Granulocytes % 8.1 %; Immature Granulocytes Absolute 1.28 #; Lymphocytes % 6.3 % (21.2-54.2); Mean Corpuscular HGB Conc 31.2 GM/DL (32-36); Mean Corpuscular Volume 96.3 FL (87-102); Mean Platelet Volume 9.6 FL (9.6-12.0); Monocytes % 8.4 % (1.7-12.7); Neutrophils % 76.4 % (38.7-73.9); Platelet Count 276 T/CUMM (130-400); Red Blood Count 3.79 MC/CUMM (3.8-5.5); White Blood Count 15.8 T/CUMM (4-12)
[2018-10-07] MEDS: PIPERACILLIN/TAZOBACTAM 3,375 MG in SODIUM CHLORIDE 0.9% 100 ML IV SCH (06:13)
[2018-10-07] MEDS: INSULIN LISPRO 100 UNIT/ML SUBCUT SCH ×3 (06:21→13:41)
[2018-10-07 06:24] LABS: Band Neutrophils 10 % (0-10); Lymphocytes 14 % (20-55); Platelet Estimate Normal; Segmented Neutrophils 73 % (50-85); Total Cells Counted 100
[2018-10-07 06:25] LABS: Anisocytosis Slight; Smudge Cells Few
[2018-10-07] MEDS: LEVOFLOXACIN 750 MG TABLET PER TUBE SCH (10:05)
[2018-10-07] MEDS: DULoxetine 30 MG CAPSULE PO SCH (10:05)
[2018-10-07] MEDS: CARVEDILOL 12.5 MG TABLET PO SCH (10:05)
[2018-10-07] MEDS: ASPIRIN CHEW 81 MG TABLET PO SCH (10:05)
[2018-10-07] MEDS: ASCORBIC ACID 500 MG TABLET PO SCH (10:06)
[2018-10-07] MEDS: LANSOPRAZOLE ODT 30 MG TABLET PER TUBE SCH (10:06)
[2018-10-07] MEDS: CILOSTAZOL 100 MG TABLET PO SCH (10:06)
[2018-10-07] MEDS: ALLOPURINOL 300 MG TABLET PO SCH (10:06)
[2018-10-07] MEDS: LEVOTHYROXINE 75 MCG TABLET PO SCH (10:06)
[2018-10-07] MEDS: predniSONE 10 MG TABLET PO SCH (10:06)
[2018-10-07] MEDS: INSULIN GLARGINE 100 UNIT/ML SUBCUT SCH (10:25)
[2018-10-07] MEDS: ENOXAPARIN 40 MG/0.4 ML SYRINGE SUBCUT SCH (13:41)
== END 2018-10-07 15:03 | DRG 207 ==
LOC: N.ED 09:03 → N.EDINP 11:44 → SUATTDRO 11:44 → N.ICU 18:02
PROVIDERS: ADMIT Family Medicine; ATTEND Internal Medicine